=== PATIENT | male | born 1955 | race Hispanic/Latino ===

== ENCOUNTER 2019-05-01 07:47 | Outpatient (CLI) | payer OTHER ==
[2019-05-01 14:18] LABS: Bilirubin Negative (Negative); Blood, Urine Negative (Negative); Clarity Clear (Clear); Glucose, Urine (Dipstick) 100 mg/dL (Negative); Leukocyte Negative Leu/uL (Negative); Nitrite Negative (Negative); Protein, Urine (Dipstick) Negative (Neg-Trace); RBC/HPF 0-3 HPF (0-3); Squamous Epithelial 0-3 HPF (0-3); Urobilinogen Normal mg/dL (Less than 2); WBC/HPF 0-3 HPF (0-3)
[2019-05-01 14:20] LABS: Bacteria/HPF 1+ HPF (None Seen)
--- NOTE | 2019-05-01 16:45 | EKG ---
Test Reason : Blood Pressure : / mmHG Vent. Rate : 081 BPM Atrial Rate : 081 BPM P-R Int : 116 ms QRS Dur : 086 ms QT Int : 356 ms P-R-T Axes : 073 068 050 degrees QTc Int : 413 ms Normal sinus rhythm Normal ECG When compared with ECG of 29-DEC-2008 13:55, No significant change was found Confirmed by DR. Kevyn MAJOR ([id number]) on 05/01/2019 4:45:03 PM Referred By: KEISHA Confirmed By:DR. Kevyn MAJOR
== END 2019-05-01 07:48 | disposition home or self-care (01) ==
LOC: LABBT 07:47
PROVIDERS: ATTEND Urology
DX: Z01.818 Encounter for other preprocedural examination (principal); N40.1 Benign prostatic hyperplasia with lower urinary tract symptoms; N21.0 Calculus in bladder
CPT/HCPCS: 81001; 87086; 93005; 93010

== ENCOUNTER 2019-05-08 08:11 | Day surgery (SDC) | payer OTHER ==
[2019-05-01 13:16] VITALS: BMI 39.8
[2019-05-08] MEDS ORDERED: Levofloxacin 500 mg/D5W 100 ml Premix Bag ONE (09:24)
[2019-05-08] MEDS ORDERED: B & O ONE (10:46)
[2019-05-08] MEDS ORDERED: Midazolam HCl 2 mg/2 ml Vial ONE (11:06)
[2019-05-08] MEDS ORDERED: Fentanyl 100 MCG/2 ML VIAL ONE (11:06)
[2019-05-08] MEDS ORDERED: Phenazopyridine HCl 97.5 MG TABLET ONE (12:55)
--- NOTE | 2019-05-08 13:19 | OP ---
DATE OF PROCEDURE: 05/08/2019 SERVICE: Urology. PREOPERATIVE DIAGNOSES: Bladder stone with benign prostatic hypertrophy and obstruction. POSTOPERATIVE DIAGNOSES: Bladder stone with benign prostatic hypertrophy and obstruction. PROCEDURES PERFORMED: 1. Cystoscopy with cystolitholapaxy. 2. UroLift with 6 implants. INDICATIONS FOR PROCEDURE: Mr. Kauffman is a 63-year-old male, who had presented to me with significant urinary complaints including both irritative and obstructive symptoms. On cystoscopy, he was found to have an approximately 1.5 cm bladder stone within the bladder. I discussed cystolitholapaxy with concurrent UroLift implant, which he was a candidate for. Risks and benefits of both procedure were discussed and he agreed to proceed forward. DESCRIPTION OF PROCEDURE: After identification of armband and verification of consent, the patient was brought back to the operating room, where he underwent general anesthesia with an endotracheal intubation. He was then placed in the dorsal lithotomy position and prepped and draped in the usual sterile fashion. After appropriate time-out, a 22-Japanese rigid cystoscope was introduced per urethra into the bladder. The meatus did require dilation with Childress sounds up to the level of approximately 24-Japanese to allow for passage of the cystoscope. The urethra was otherwise unremarkable. The prostate was hypertrophic as previously had been described on outpatient cystoscopy. The bladder was normal except for the bladder stone noted at the floor of the bladder. Using a 550-micron laser fiber, the bladder stone was fragmented into small pieces and then the pieces evacuated out via the cystoscope. There were no significant pieces remaining upon completion except some dust granules. The cystoscope was then switched out for the 21-Japanese rigid cystoscope with visual obturator for the UroLift device. This was brought into the bladder and then the visual obturator switched out for the UroLift implant gun. The initial implant was placed on the patient's left bladder neck by positioning the scope in the appropriate location and then dropping the hands down and compressing the lateral lobe approximately 20 degrees. The safety was released and the blue trigger fired, deploying the Nitinol needle, the tension and the capsular tab were deployed using the napier needle and then the UroLift advanced forward until the white line within the keyhole. The urethral end piece was then deployed using the release button on the back of UroLift. The same procedure was then done on the patient's bladder neck on the right as well as to at the verumontanum. This resulted in nice opening of the prostate; however, there was still a drooping cat-eye effect from the anterior prostate. Two anterior implants were placed in the mid prostate to elevate the prostate, which resulted in nice opening of the overall prostatic urethra. Upon completion, the prostate was wide open. The UroLift and scope were removed. An 18-Japanese Aragon catheter placed in the patient's bladder, 10 mL of sterile water was placed into the balloon. The patient had a B and O suppository placed. He was then taken out of positioning, awakened, and taken to PACU for recovery in stable condition. COMPLICATIONS: None. ESTIMATED BLOOD LOSS: Minimal. RETAINED TUBES AND DRAINS: An 18-Japanese Aragon catheter. SPECIMENS: Stone for stone analysis. IMPLANTS USED: 6. DISPOSITION: The patient will stay in PACU and then Day Stay, where he will undergo a void trial as long as he passes. He will be discharged home and I will see him back in the office for postoperative care. Job ID: [id number]
[2019-05-08] MEDS ORDERED: Glycopyrrolate 0.2 MG/ML 5 ML SYRINGE ONE (14:39)
[2019-05-08] MEDS ORDERED: Rocuronium Bromide 10 MG/ML (10ML VIAL) ONE (14:39)
[2019-05-08] MEDS ORDERED: ePHEDrine/0.9% NaCl/PF SYRINGE 50 mg/10 ml ONE (14:39)
[2019-05-08] MEDS ORDERED: PROPOFOL 200 MG/20 ML VIAL ONE (14:39)
[2019-05-08] MEDS ORDERED: PHENYLEPHRINE-NS 100 MCG/ML 10 ML SYRINGE ONE (14:39)
[2019-05-08] MEDS ORDERED: Ondansetron PF 4 MG/2 ML Vial ONE (14:39)
== END 2019-05-08 17:23 | disposition home or self-care (01) ==
LOC: SDC 08:11
PROVIDERS: ATTEND Urology
PROC: 0T7D8DZ Dilation of Urethra with Intraluminal Device, Via Natural or Artificial Opening Endoscopic (ICD-10-PCS; principal; 2019-05-08)
PROC: 0TCB8ZZ Extirpation of Matter from Bladder, Via Natural or Artificial Opening Endoscopic (ICD-10-PCS; principal; 2019-05-08)
DX: N40.1 Benign prostatic hyperplasia with lower urinary tract symptoms (principal); N13.8 Other obstructive and reflux uropathy; R35.0 Frequency of micturition; N21.0 Calculus in bladder; N52.01 Erectile dysfunction due to arterial insufficiency; I10 Essential (primary) hypertension; R73.03 Prediabetes; Z79.84 Long term (current) use of oral hypoglycemic drugs; Z79.899 Other long term (current) drug therapy; Z88.5 Allergy status to narcotic agent
CPT/HCPCS: 82365; 88300; C1889; J1956; J2250; J2405; J2704; J3010

== ENCOUNTER 2024-04-16 13:03 | Inpatient (IN) | payer OTHER ==
[2024-04-16 13:59] LABS: #Basophils 0.04 10x3/uL (0.0-0.2); %Basophils 0.6 % (0.0-1.0); %Eosinophils 1.6 % (0.0-10.0); %Neutrophils 76.5 % (42.0-75.0); Hematocrit 42.8 % (42.0-52.0); Hemoglobin 14.6 g/dL (14.0-18.0); Mean Corpuscular HGB CONC 34.1 g/dL (32.0-36.0); Mean Corpuscular Hemoglobin 30.8 pg (27.0-31.0); Mean Corpuscular Volume 90.3 fL (78.0-98.0); Mean Platelet Volume 10.9 fL (7.4-10.4); Platelet Count 157 10x3/uL (130-400); RBC Distribution Width 12.9 % (11.5-14.5); Red Blood Cell (RBC) Count 4.74 mill/uL (4.70-6.10)
[2024-04-16 14:13] LABS: ALT (SGPT) 32 U/L (8-55); AST (SGOT) 34 U/L (5-34); Albumin 4.1 g/dL (3.4-4.8); Alkaline Phosphatase 64 U/L (40-110); Anion Gap 17 mmol/L (10-20); BUN (Urea Nitrogen) 19 mg/dL (8.4-25.7); Bilirubin, Total 0.7 mg/dL (0.2-1.2); Calc. Creatinine Clearance 0 mL/min (70-130); Calcium 9.2 mg/dL (7.8-10.44); Carbon Dioxide 19 mmol/L (23-31); Chloride 106 mmol/L (98-107); Estimated GFR 68; Globulin 3.8 g/dL (2.4-3.5); Glucose 110 mg/dL (80-115); Potassium 4.8 mmol/L (3.5-5.1); Protein, Total 7.9 g/dL (5.8-8.1); Sodium 137 mmol/L (136-145)
[2024-04-16 14:19] LABS: Troponin I Less than 0.010 ng/mL (< 0.028)
[2024-04-16] MEDS ORDERED: Metoprolol Tartrate 5 MG (5 mL) VIAL ONE (14:19)
[2024-04-16] MEDS ORDERED: Aspirin Chewable 81 MG TAB ONE (14:19)
[2024-04-16 14:34] LABS: Magnesium 2.1 mg/dL (1.6-2.6)
[2024-04-16] MEDS ORDERED: Diltiazem HCl/D5W 125 ML ONE (15:24)
[2024-04-16] MEDS ORDERED: dilTIAZem 25 MG/5 ML VIAL ONE (15:24)
[2024-04-16] MEDS ORDERED: Calcium Carbonate 500 MG ChewTAB PO PRN (16:19)
[2024-04-16] MEDS ORDERED: Ondansetron PF 4 MG/2 ML Vial IVP PRN (16:19)
[2024-04-16] MEDS ORDERED: Senokot S 8.6-50 MG TAB PO PRN (16:19)
[2024-04-16] MEDS ORDERED: Acetaminophen 650 MG Suppository PR PRN (16:19)
[2024-04-16] MEDS ORDERED: Guaifenesin DM 100-10/5 ML UDCUP PO PRN (16:19)
[2024-04-16] MEDS ORDERED: Acetaminophen 325 MG TAB PO PRN (16:19)
[2024-04-16] MEDS ORDERED: Ondansetron ODT 4 MG TAB PO PRN (16:19)
[2024-04-16] MEDS ORDERED: Glucagon 1 MG/ML KIT IM PRN (16:45)
[2024-04-16] MEDS ORDERED: Dextrose 50% Abboject 50 ML SYRINGE SLOW IVP PRN (16:45)
[2024-04-16] MEDS ORDERED: Dextrose 5% in Water 1,000 ML IV PRN (16:45)
[2024-04-16] MEDS ORDERED: Insulin Regular, Human 100 UNIT/ML 10 ML VIAL SC PRN (16:45)
[2024-04-16] MEDS: Sodium Chloride 0.9% 1,000 ML IV SCH (17:22)
[2024-04-16 19:50] LABS: Troponin I 0.012 ng/mL (< 0.028)
[2024-04-16 21:14] VITALS: BMI 37.9
[2024-04-16] MEDS: Atorvastatin Calcium 10 MG TAB PO SCH (22:09)
[2024-04-16] MEDS: Apixaban 5 MG TAB PO SCH (22:09)
[2024-04-16] MEDS: Latanoprost 0.005% Ophth Soln 2.5 ml Bottle EA EYE SCH (22:09)
[2024-04-16 22:32] LABS: Bacteria/HPF None Seen HPF (None Seen); Bilirubin Negative (Negative); Blood, Urine Negative (Negative); CAUTI Indications for Culture Acute Hematuria; Clarity Clear (Clear); Glucose, Urine (Dipstick) Normal (Negative); Ketone, Urine Negative (Negative); Leukocyte Negative Leu/uL (Negative); Nitrite Negative (Negative); Protein, Urine (Dipstick) Negative (Neg-Trace); RBC/HPF 0-3 HPF (0-3); Specific Gravity, Urine 1.012 (1.002-1.036); Squamous Epithelial 0-3 HPF (0-3); Urobilinogen Normal mg/dL (Less than 2); WBC/HPF 0-3 HPF (0-3); pH, Urine 5.5 (5.0-9.0)
[2024-04-16 22:35] LABS: Urine Culture Reflex No No
[2024-04-17 04:25] LABS: #Basophils 0.06 10x3/uL (0.0-0.2); %Basophils 0.9 % (0.0-1.0); %Eosinophils 3.6 % (0.0-10.0); %Monocytes 9.1 % (0.0-10.0); Hematocrit 42.2 % (42.0-52.0); Hemoglobin 14.2 g/dL (14.0-18.0); Mean Corpuscular HGB CONC 33.6 g/dL (32.0-36.0); Mean Corpuscular Hemoglobin 30.7 pg (27.0-31.0); Mean Corpuscular Volume 91.3 fL (78.0-98.0); Mean Platelet Volume 10.8 fL (7.4-10.4); Platelet Count 159 10x3/uL (130-400); Red Blood Cell (RBC) Count 4.62 mill/uL (4.70-6.10)
[2024-04-17 04:40] LABS: ALT (SGPT) 29 U/L (8-55); AST (SGOT) 32 U/L (5-34); Albumin 3.8 g/dL (3.4-4.8); Alkaline Phosphatase 61 U/L (40-110); Anion Gap 13 mmol/L (10-20); BUN (Urea Nitrogen) 15 mg/dL (8.4-25.7); Bilirubin, Total 0.9 mg/dL (0.2-1.2); Calc. Creatinine Clearance 110 mL/min (70-130); Carbon Dioxide 21 mmol/L (23-31); Chloride 106 mmol/L (98-107); Estimated GFR 93; Globulin 3.6 g/dL (2.4-3.5); Glucose 108 mg/dL (80-115); Potassium 4.1 mmol/L (3.5-5.1); Protein, Total 7.4 g/dL (5.8-8.1); Sodium 136 mmol/L (136-145)
[2024-04-17] MEDS: CO Q-10 CAPSULE 100 MG PO SCH (08:51)
[2024-04-17] MEDS: Oxybutynin ER 5 MG TAB PO SCH (08:51)
[2024-04-17] MEDS: Aspirin 81 mg Enteric Coated Tablet PO SCH (08:52)
[2024-04-17 11:11] VITALS: BP 135/82; TEMP 97.7
[2024-04-17] MEDS ORDERED: metFORMIN 500 MG TAB PO SCH (17:00)
[2024-04-17] MEDS ORDERED: Atorvastatin Calcium 10 MG TAB PO SCH (21:00)
[2024-04-18] MEDS ORDERED: Amlodipine 10 MG TAB PO SCH (09:00)
[2024-04-18] MEDS ORDERED: Lisinopril 20 MG TAB PO SCH (09:00)
[2024-04-18] MEDS ORDERED: Tamsulosin HCl 0.4 MG CAP PO SCH (09:00)
[2024-04-18] MEDS ORDERED: Finasteride 5 MG TAB PO SCH (09:00)
[2024-04-18] MEDS ORDERED: Hydrochlorothiazide 25 MG TAB PO SCH (09:00)
[2024-04-18] MEDS ORDERED: Cholestyramine/Aspartame 4 gm Packet PO SCH (10:00)
[2024-04-19] MEDS ORDERED: FLU (Fluad Triv) TS24-25 (65UP)/MF59C/PF 45 MCG/0.5 ML Syringe IM ONE (09:00)
== END 2024-04-17 16:45 | disposition home or self-care (01) | DRG 310 ==
LOC: ERS 13:03 → ERHOLD 16:47 → OBS 21:13
PROVIDERS: ADMIT Internal Medicine; ATTEND Family Medicine
DX: I48.19 Other persistent atrial fibrillation (principal); R31.0 Gross hematuria; E11.9 Type 2 diabetes mellitus without complications; E78.5 Hyperlipidemia, unspecified; N40.0 Benign prostatic hyperplasia without lower urinary tract symptoms; I35.0 Nonrheumatic aortic (valve) stenosis; I10 Essential (primary) hypertension; Z88.5 Allergy status to narcotic agent; Z79.84 Long term (current) use of oral hypoglycemic drugs; Z79.899 Other long term (current) drug therapy
CPT/HCPCS: 36415; 36416; 71045; 80053; 81001; 83735; 83880; 84443; 84484; 85025; 93005; 93306; 96374; 96375; J7030

== ENCOUNTER 2024-05-14 15:22 | Outpatient (CLI) | payer OTHER ==
[2024-05-14 16:37] LABS: #Basophils Less than 0.03 10x3/uL (0.0-0.2); %Basophils 0.3 % (0.0-1.0); %Eosinophils 3.5 % (0.0-10.0); %Monocytes 9.1 % (0.0-10.0); %Neutrophils 70.8 % (42.0-75.0); Hematocrit 38.1 % (42.0-52.0); Hemoglobin 12.8 g/dL (14.0-18.0); Mean Corpuscular HGB CONC 33.6 g/dL (32.0-36.0); Mean Corpuscular Hemoglobin 30.3 pg (27.0-31.0); Mean Corpuscular Volume 90.3 fL (78.0-98.0); Mean Platelet Volume 11.5 fL (7.4-10.4); Platelet Count 151 10x3/uL (130-400); RBC Distribution Width 13.2 % (11.5-14.5); Red Blood Cell (RBC) Count 4.22 mill/uL (4.70-6.10)
[2024-05-14 16:55] LABS: Anion Gap 11 mmol/L (10-20); BUN (Urea Nitrogen) 20 mg/dL (8.4-25.7); Calc. Creatinine Clearance 0 mL/min (70-130); Carbon Dioxide 26 mmol/L (23-31); Chloride 105 mmol/L (98-107); Potassium 3.8 mmol/L (3.5-5.1); Sodium 138 mmol/L (136-145)
[2024-05-14 16:56] LABS: Calcium 9.1 mg/dL (7.8-10.44); Estimated GFR 86; Glucose 109 mg/dL (80-115)
== END 2024-05-14 15:23 | disposition home or self-care (01) ==
LOC: LABBT 15:22
PROVIDERS: ATTEND Internal Medicine Cardiovascular Disease
DX: Z01.818 Encounter for other preprocedural examination (principal); I48.91 Unspecified atrial fibrillation
CPT/HCPCS: 80048; 85025; 93005; 93010

== ENCOUNTER 2024-05-15 10:04 | Day surgery (SDC) | payer OTHER ==
[2024-05-14 15:46] VITALS: BMI 36.6
[2024-05-15] MEDS ORDERED: Lidocaine 1% PF 5 ML VIAL ONE (12:17)
[2024-05-15] MEDS ORDERED: PROPOFOL 200 MG/20 ML VIAL ONE (12:17)
== END 2024-05-15 14:12 | disposition home or self-care (01) ==
LOC: SDC 10:04
PROVIDERS: ATTEND Internal Medicine Cardiovascular Disease
PROC: B24BZZ4 Ultrasonography of Heart with Aorta, Transesophageal (ICD-10-PCS; principal; 2024-05-15)
PROC: 5A2204Z Restoration of Cardiac Rhythm, Single (ICD-10-PCS; principal; 2024-05-15)
DX: I48.91 Unspecified atrial fibrillation (principal); I35.0 Nonrheumatic aortic (valve) stenosis; I10 Essential (primary) hypertension; E11.9 Type 2 diabetes mellitus without complications; E78.5 Hyperlipidemia, unspecified; N40.0 Benign prostatic hyperplasia without lower urinary tract symptoms; Z88.5 Allergy status to narcotic agent; Z79.01 Long term (current) use of anticoagulants; Z79.84 Long term (current) use of oral hypoglycemic drugs; Z79.82 Long term (current) use of aspirin; Z79.899 Other long term (current) drug therapy
CPT/HCPCS: 92960; 93005; 93010; 93312; J2704

== ENCOUNTER 2024-12-11 09:29 | Day surgery (SDC) | payer OTHER ==
[2024-11-30 11:41] VITALS: BMI 39.4
[2024-12-11] MEDS ORDERED: LevoFLOXacin D5W 500 mg (100 mL) BAG ONE (13:03)
[2024-12-11] MEDS ORDERED: PROPOFOL 20 ML ONE ×2 (13:19→13:47)
[2024-12-11] MEDS ORDERED: Lidocaine 1% PF 5 ML VIAL ONE (13:20)
[2024-12-11] MEDS ORDERED: PHENYLEPHRINE-NS 100 MCG/ML 10 ML SYRINGE ONE (13:39)
[2024-12-11] MEDS ORDERED: Rocuronium Bromide 10 MG/ML (10ML VIAL) ONE (13:47)
[2024-12-11] MEDS ORDERED: Ondansetron PF 4 MG/2 ML Vial ONE (13:52)
[2024-12-11] MEDS ORDERED: SUGAMMADEX SODIUM 200 MG/2 ML VIAL ONE (14:49)
[2024-12-11] MEDS ORDERED: Oxybutynin 5 MG TAB ONE (15:10)
== END 2024-12-11 18:50 | disposition home or self-care (01) ==
LOC: SDC 09:29
PROVIDERS: ATTEND Urology
PROC: 0TCB8ZZ Extirpation of Matter from Bladder, Via Natural or Artificial Opening Endoscopic (ICD-10-PCS; principal; 2024-12-11)
PROC: 0V508ZZ Destruction of Prostate, Via Natural or Artificial Opening Endoscopic (ICD-10-PCS; principal; 2024-12-11)
DX: N40.1 Benign prostatic hyperplasia with lower urinary tract symptoms (principal); N13.8 Other obstructive and reflux uropathy; N21.0 Calculus in bladder; I12.9 Hypertensive chronic kidney disease with stage 1 through stage 4 chronic kidney disease, or unspecified chronic kidney disease; E11.22 Type 2 diabetes mellitus with diabetic chronic kidney disease; N18.9 Chronic kidney disease, unspecified; Z88.5 Allergy status to narcotic agent
CPT/HCPCS: 82365; 88300; A4333; J1100; J1956; J2405; J2704; J3010

== ENCOUNTER 2025-01-15 10:31 | Day surgery (SDC) | payer OTHER ==
[2025-01-14 09:55] VITALS: BMI 38.9
[2025-01-15 11:42] LABS: #Basophils Less than 0.03 10x3/uL (0.0-0.2); #Eosinophils 0.18 10x3/uL (0.0-0.7); #Monocytes 0.60 10x3/uL (0.11-0.59); #Neutrophils 5.47 10x3/uL (1.40-6.50); %Basophils 0.3 % (0.0-1.0); %Eosinophils 2.5 % (0.0-10.0); %Lymphocytes 13.5 % (21.0-51.0); %Monocytes 8.2 % (0.0-10.0); %Neutrophils 75.1 % (42.0-75.0); Hematocrit 40.6 % (42.0-52.0); Hemoglobin 13.5 g/dL (14.0-18.0); Mean Corpuscular Hemoglobin 29.5 pg (27.0-31.0); Mean Corpuscular Volume 88.8 fL (78.0-98.0); Platelet Count 173 10x3/uL (130-400); Red Blood Cell (RBC) Count 4.57 mill/uL (4.70-6.10); White Blood Cell (WBC) Count 7.28 10x3/uL (4.8-10.8)
[2025-01-15 12:00] LABS: Anion Gap 18 mmol/L (10-20); BUN (Urea Nitrogen) 14 mg/dL (8.4-25.7); Calc. Creatinine Clearance 115 mL/min (70-130); Calcium 9.0 mg/dL (7.8-10.44); Carbon Dioxide 19 mmol/L (23-31); Chloride 107 mmol/L (98-107); Glucose 121 mg/dL (80-115); Potassium 4.0 mmol/L (3.5-5.1); Sodium 140 mmol/L (136-145)
[2025-01-15] MEDS ORDERED: Lidocaine 1% PF 5 ML VIAL ONE (12:55)
[2025-01-15] MEDS ORDERED: PHENYLEPHRINE-NS 100 MCG/ML 10 ML SYRINGE ONE (12:55)
[2025-01-15] MEDS ORDERED: PROPOFOL 200 MG/20 ML VIAL ONE (12:55)
== END 2025-01-15 14:15 | disposition home or self-care (01) ==
LOC: EDBD → SDC 10:31
PROVIDERS: ATTEND Internal Medicine Cardiovascular Disease
PROC: 5A2204Z Restoration of Cardiac Rhythm, Single (ICD-10-PCS; principal; 2025-01-15)
DX: I48.91 Unspecified atrial fibrillation (principal); I10 Essential (primary) hypertension; E78.5 Hyperlipidemia, unspecified; E11.9 Type 2 diabetes mellitus without complications; I35.0 Nonrheumatic aortic (valve) stenosis; N40.0 Benign prostatic hyperplasia without lower urinary tract symptoms; E66.812 Obesity, class 2; Z68.38 Body mass index [BMI] 38.0-38.9, adult; Z79.899 Other long term (current) drug therapy; Z79.82 Long term (current) use of aspirin; Z79.01 Long term (current) use of anticoagulants
CPT/HCPCS: 80048; 85025; 92960; J2704